=== PATIENT | female | born 1945 | race African-American/Black ===

== ENCOUNTER 2020-09-14 11:21 | Inpatient (IN) | payer MEDICARE, OTHER ==
[~2020-09-14] VITALS: Ht 165.1 cm; Wt 72.6 kg
[2020-09-14 13:21] LABS: BASOPHILS % 0.8 % (0.0-2.0); EOSINOPHILS % 0.4 % (0.0-5.0); HEMATOCRIT. 26.9 % (36.0-48.0); HEMOGLOBIN. 8.8 g/dL (12.0-16.0); LYMPHOCYTES % 17.2 % (20.0-50.0); MEAN CORPUSCULAR HEMOGLOBIN 25.5 pg (28.0-32.0); MEAN CORPUSCULAR VOLUME 77.7 fL (81.0-99.0); MEAN PLATELET VOLUME 7.7 fl (7.4-10.4); MONOCYTES % 8.2 % (2.0-8.0); NEUTROPHILS % 73.4 % (40.0-76.0); PLATELET 499 x1000/uL (130-400); RED BLOOD CELL COUNT 3.46 mill/uL (4.2-5.4); RED CELL DISTRIBUTION WIDTH 17.2 % (11.6-14.6)
[2020-09-14] MEDS ORDERED: VANCOMYCIN 1 G PREMIX 200 ML IV SCH ×2 (16:15→22:30)
[2020-09-14] MEDS ORDERED: PIPERACILLIN/TAZOBACTAM 3.375GM/50ML PREMIX IV NR (16:15)
[2020-09-14] MEDS ORDERED: IPRATROPIUM/ALBUTEROL 0.5-3(2.5)MG/3ML NEB HHN PRN (22:30)
[2020-09-14] MEDS ORDERED: PIPERACILLIN/TAZ 3.375G PREMIX 50 ML IV SCH (22:30)
[2020-09-14] MEDS ORDERED: HYDROCODONE/ACETAMINOPHEN 5/325MG TABLET PO PRN (22:30)
[2020-09-15 01:16] LABS: CLARITY URINE CLOUDY (CLEAR); COLOR URINE YELLOW (YELLOW); KETONES URINE NEGATIVE (NEGATIVE); LEUKOCYTE ESTERASE URINE 1+ (NEGATIVE); NITRITE URINE NEGATIVE (NEGATIVE); OCCULT BLOOD URINE NEGATIVE (NEGATIVE); PROTEIN URINE TRACE (NEGATIVE); SPECIFIC GRAVITY URINE 1.014 (1.005-1.030); UROBILINOGEN URINE 0.2 E.U./dL (0.2-1.0)
[2020-09-15] MEDS ORDERED: METF500S7 PO (05:05)
[2020-09-15 05:08] VITALS: BP 124/82
[2020-09-15] MEDS ORDERED: DEXTROSE 50% WATER 50ML SYRINGE IV PRN (05:45)
[2020-09-15 06:35] LABS: CHLORIDE 102 mEq/L (98-107)
[2020-09-15 06:36] LABS: EOSINOPHILS % 2.5 % (0.0-5.0); HEMATOCRIT. 27.2 % (36.0-48.0); HEMOGLOBIN. 9.1 g/dL (12.0-16.0); LYMPHOCYTES % 23.1 % (20.0-50.0); MEAN CORPUSCULAR HEMOGLOBIN 26.1 pg (28.0-32.0); MEAN CORPUSCULAR VOLUME 77.9 fL (81.0-99.0); MEAN PLATELET VOLUME 7.5 fl (7.4-10.4); MONOCYTES % 10.3 % (2.0-8.0); NEUTROPHILS % 63.1 % (40.0-76.0); PLATELET 491 x1000/uL (130-400); RED BLOOD CELL COUNT 3.49 mill/uL (4.2-5.4); RED CELL DISTRIBUTION WIDTH 17.2 % (11.6-14.6)
[2020-09-15 06:46] LABS: LDL CHOLESTEROL 109 mg/dL (5-100)
[2020-09-15 06:47] LABS: CREATINE KINASE 70 IU/L (26-192); HDL CHOLESTEROL 41 mg/dL (40-59)
[2020-09-15 06:48] LABS: T4 FREE 1.75 ng/dL (0.76-1.46)
[2020-09-15] MEDS: BLOOD SUGAR DIAGNOSTIC STRIP TEST SCH ×4 (07:20→21:00)
[2020-09-15] MEDS ORDERED: CIPROFLOXACIN 0.3% OPHTH SOLN 2.5ML ONE (07:37)
[2020-09-15] MEDS ORDERED: PREDNISOLONE ACETATE 1% OPHTH DROPS 5ML ONE (07:37)
[2020-09-15] MEDS ORDERED: LIDOCAINE HCL 2%/EPINEPHRINE 1:100,000 20 ML VIAL INFIL ONE (07:37)
[2020-09-15] MEDS ORDERED: BUPIVACAINE HCL/PF 0.75% (7.5MG/ML) 10ML ONE (07:37)
[2020-09-15] MEDS ORDERED: NEO/POLYMYX B SULF/DEXAMETH OPHTH OINT 3.5GM ONE (07:37)
[2020-09-15] MEDS: INSULIN LISPRO 100 UNITS/ML SUBCUT SCH ×4 (07:50→21:00)
[2020-09-15 08:25] VITALS: BP 148/76
[2020-09-15] MEDS ORDERED: POTASSIUM CHLORIDE INJ 30 MEQ in DEXT 5% WATER 250 ML IV ONE (10:00)
[2020-09-15] MEDS ORDERED: PROPOFOL 200MG/20ML VIAL IV ONE (10:24)
[2020-09-15] MEDS ORDERED: MORPHINE SULFATE 2 MG/ML CPJ (NOT FOR IM USE) IV NR (11:00)
[2020-09-15] MEDS ORDERED: FENTANYL CITRATE/PF 50MCG/ML 2ML VIAL ONE (11:01)
[2020-09-15] MEDS ORDERED: GLYCOPYRROLATE 0.2 MG/ML 2ML VIAL ONE (11:56)
[2020-09-15] MEDS ORDERED: PHENYLEPHRINE HCL 10 MG/ML 1ML (IV VIAL) IV ONE (12:28)
[2020-09-15] MEDS ORDERED: ONDANSETRON HCL 4MG/2ML INJ IV PRN (13:45)
[2020-09-15] MEDS ORDERED: MORPHINE SULFATE 2 MG/ML CPJ (NOT FOR IM USE) IV PRN (13:45)
[2020-09-15] MEDS ORDERED: LACTULOSE 20G/30ML UDC PO PRN (15:30)
[2020-09-15] MEDS ORDERED: HYDRALAZINE 20MG/ML VIAL IV PRN (15:30)
[2020-09-15] MEDS ORDERED: ACETAMINOPHEN 650MG SUPP PR PRN (15:30)
[2020-09-15] MEDS ORDERED: ACETAMINOPHEN 325MG TABLET PO PRN (15:30)
[2020-09-15] MEDS ORDERED: LORAZEPAM 2MG/ML CPJ IV PRN (15:30)
[2020-09-15] MEDS: SODIUM CHLORIDE 0.9% 1,000 ML IV SCH (16:38)
[2020-09-15 16:41] VITALS: BP 160/76
[2020-09-15 18:06] LABS: CREATINE KINASE 68 IU/L (26-192)
[2020-09-15] MEDS ORDERED: VANCOMYCIN 750 MG PREMIX 150 ML IV SCH (20:00)
[2020-09-15 20:23] VITALS: BP 137/63
[2020-09-15] MEDS: FAMOTIDINE 20MG TABLET PO SCH (21:00)
[2020-09-16] VITALS: BP 167/73
[2020-09-16] MEDS: PIPERACILLIN/TAZOBACTAM 2.25 G in DEXTROSE 5% WATER 50 ML IV SCH ×4 (03:17→20:29)
[2020-09-16 04:00] VITALS: BP 162/80
[2020-09-16 06:16] LABS: BASOPHILS % 0.8 % (0.0-2.0); EOSINOPHILS % 1.9 % (0.0-5.0); HEMATOCRIT. 23.2 % (36.0-48.0); HEMOGLOBIN. 7.7 g/dL (12.0-16.0); LYMPHOCYTES % 20.3 % (20.0-50.0); MEAN CORPUSCULAR HEMOGLOBIN 25.8 pg (28.0-32.0); MEAN CORPUSCULAR VOLUME 77.3 fL (81.0-99.0); MEAN PLATELET VOLUME 7.4 fl (7.4-10.4); MONOCYTES % 8.8 % (2.0-8.0); NEUTROPHILS % 68.2 % (40.0-76.0); PLATELET 495 x1000/uL (130-400); RED BLOOD CELL COUNT 3.01 mill/uL (4.2-5.4); RED CELL DISTRIBUTION WIDTH 17.5 % (11.6-14.6)
[2020-09-16] MEDS: BLOOD SUGAR DIAGNOSTIC STRIP TEST SCH ×4 (06:44→21:09)
[2020-09-16 08:30] VITALS: BP 135/71
[2020-09-16] MEDS: INSULIN LISPRO 100 UNITS/ML SUBCUT SCH ×4 (09:33→21:20)
[2020-09-16] MEDS: METFORMIN HCL 500MG TABLET PO SCH ×2 (10:16→18:09)
[2020-09-16 12:00] VITALS: BP 152/64
[2020-09-16] MEDS: SODIUM CHLORIDE 0.9% 1,000 ML IV SCH (12:57)
[2020-09-16] MEDS ORDERED: HYDRALAZINE 10 MG in SODIUM CHLORIDE 0.9% 49.5 ML IV PRN (15:00)
[2020-09-16 16:00] VITALS: BP 123/76
[2020-09-16 16:10] LABS: HEMATOCRIT 23.1 % (36.0-48.0); HEMOGLOBIN 7.9 g/dL (12.0-16.0)
[2020-09-16 16:24] LABS: TOTAL IRON BINDING CAPACITY 291 ug/dL (250-450)
[2020-09-16 18:05] LABS: PROTHROMBIN TIME 11.1 sec (9.6-11.0)
[2020-09-16 20:00] VITALS: BP 175/84
[2020-09-16] MEDS ORDERED: VANCOMYCIN 750 MG PREMIX 150 ML IV SCH (21:00)
[2020-09-16] MEDS: FAMOTIDINE 20MG TABLET PO SCH (21:08)
[2020-09-17] VITALS (7 sets, daily range): BP systolic 144–170; BP diastolic 69–83
[2020-09-17] MEDS: PIPERACILLIN/TAZOBACTAM 2.25 G in DEXTROSE 5% WATER 50 ML IV SCH ×4 (00:08→17:41)
[2020-09-17] MEDS: BLOOD SUGAR DIAGNOSTIC STRIP TEST SCH ×3 (06:33→17:20)
[2020-09-17] MEDS: SODIUM CHLORIDE 0.9% 1,000 ML IV SCH (06:45)
[2020-09-17 07:16] LABS: HEMATOCRIT 24.9 % (36.0-48.0); HEMOGLOBIN 8.3 g/dL (12.0-16.0); MEAN CORPUSCULAR HEMOGLOBIN 25.7 pg (28.0-32.0); MEAN CORPUSCULAR VOLUME 76.8 fL (81.0-99.0); PLATELET 502 x1000/uL (130-400); RED BLOOD CELL COUNT 3.24 mill/uL (4.2-5.4); RED CELL DISTRIBUTION WIDTH 17.4 % (11.6-14.6)
[2020-09-17] MEDS: INSULIN LISPRO 100 UNITS/ML SUBCUT SCH ×3 (07:50→17:41)
[2020-09-17] MEDS: METFORMIN HCL 500MG TABLET PO SCH ×2 (09:52→17:40)
== END 2020-09-17 20:05 | disposition home health service (06) | DRG 113 ==
LOC: ER 11:21 → 6WST 14:17 → EDBEDREQ 15:06 → ENRESERV 09-15 03:48 → 6EST 09-16 10:33
PROVIDERS: ADMIT Internal Medicine; ATTEND Internal Medicine
PROC: 08T1XZZ Resection of Left Eye, External Approach (ICD-10-PCS; principal; 2020-09-15)
DX: H44.002 Unspecified purulent endophthalmitis, left eye (principal); E87.1 Hypo-osmolality and hyponatremia; N39.0 Urinary tract infection, site not specified; E11.65 Type 2 diabetes mellitus with hyperglycemia; Z20.822 Contact with and (suspected) exposure to COVID-19; E87.6 Hypokalemia; D64.9 Anemia, unspecified; Z79.84 Long term (current) use of oral hypoglycemic drugs; N18.9 Chronic kidney disease, unspecified; Z86.69 Personal history of other diseases of the nervous system and sense organs; Z98.42 Cataract extraction status, left eye; Z98.41 Cataract extraction status, right eye; I12.9 Hypertensive chronic kidney disease with stage 1 through stage 4 chronic kidney disease, or unspecified chronic kidney disease
CPT/HCPCS: 36415; 71045; 80048; 80053; 80061; 80202; 81003; 82550; 82728; 82962; 83036; 83540; 83550; 84439; 84443; 84484; 85014; 85018; 85025; 85027; 86850; 86900; 87070; 87075; 87077; 87186; 87426; 88304; 93005; 93970; 97116; 97162; 97530; 99285; J0360; J1815; J2370; J2543; J2704; J3010; J3370; J3480; J3490; J7030; J7040; J7060